=== PATIENT | female | born 1960 | race Two or more races ===

== ENCOUNTER 2024-09-02 00:13 | Emergency (ER) | payer OTHER ==
[~2024-09-02] VITALS: Ht 180.3 cm; Wt 112.5 kg
[2024-09-02] MEDS ORDERED: GLIMEPIRIDE4 M1 PO (00:35)
[2024-09-02] MEDS ORDERED: LEVO-T100 MCG (00:35)
[2024-09-02] MEDS ORDERED: ROSUVASTATIN CAL5 MG PO (00:36)
[2024-09-02] MEDS ORDERED: LASIX20 MG (00:36)
[2024-09-02] MEDS ORDERED: DULOXETINE HCL40 MG (00:36)
[2024-09-02] MEDS ORDERED: AZOR 10-20 MG1 EACH (00:37)
[2024-09-02] MEDS ORDERED: CARVEDILOL ER40 MG (00:37)
[2024-09-02] MEDS ORDERED: GLUMETZA500 MG (00:37)
[2024-09-02] MEDS ORDERED: KETOROLAC TROMETHAMINE 10 MG TABLET PO STA (03:28)
[2024-09-02] MEDS ORDERED: KETOROLAC TROMETHAMINE 10 MG TABLET PO ONE (03:33)
[2024-09-02] MEDS ORDERED: OxyCODONE HCL/APAP UD (PERCOCET) PO STA (05:51)
== END 2024-09-02 06:06 | disposition home or self-care (01) ==
LOC: ER 00:16
DX: S42.292A Other displaced fracture of upper end of left humerus, initial encounter for closed fracture (principal); S40.012A Contusion of left shoulder, initial encounter; W19.XXXA Unspecified fall, initial encounter; Y93.89 Activity, other specified; Y92.59 Other trade areas as the place of occurrence of the external cause; Y99.8 Other external cause status